=== PATIENT | female | born 1955 | race Caucasian/White ===

== ENCOUNTER → 2018-08-28 | Outpatient (CLI) | payer OTHER ==
--- NOTE | 2018-08-29 08:48 | Diagnostic Imaging Report ---
#[id number] - MGSCRBIL #BILATERAL DIGITAL SCREENING MAMMOGRAM WITH CAD: 08/28/2018 CLINICAL: Routine screening. Comparison is made to exams dated: 08/24/2017 mammogram and 08/01/2015 mammogram - [facility]. Current study contains 4 films. There are scattered fibroglandular elements in both breasts. Current study was also evaluated with a Computer Aided Detection (CAD) system. There is a benign calcification in both breasts. No significant masses, calcifications, or other findings are seen in either breast. There has been no significant interval change. IMPRESSION: BENIGN There is no mammographic evidence of malignancy. A 1 year screening mammogram is recommended. The patient will be notified by letter of the results. Obie yañez/lam:08/28/2018 10:48:18 Sheet Rock Taper Helper: Roslyn STANFORD(R)(M), [facility] letter sent: Compared to Prior B9 Mammogram BI-RADS: 2 Benign
== END ==
LOC: MAMMO 08:31
PROVIDERS: ATTEND Internal Medicine
DX: Z12.31 Encounter for screening mammogram for malignant neoplasm of breast (principal)
CPT/HCPCS: 77067

== ENCOUNTER 2021-07-04 01:55 | Emergency (ER) | payer MEDICARE ==
[~2021-07-04] VITALS: Ht 170.2 cm; Wt 81.6 kg
[2021-07-04] MEDS ORDERED: BACTRIM DS TAB1 EACH PO (02:22)
[2021-07-04] MEDS ORDERED: IBUPROFEN600 MG PO (02:22)
[2021-07-04] MEDS ORDERED: IBUPROFEN 400 MG TAB PO ONE (02:30)
[2021-07-04] MEDS ORDERED: TRIMETHOPRIM/SULFAMETHOXAZOLE 160-800 MG TAB PO ONE (02:30)
[2021-07-04] MEDS ORDERED: TETANUS/DIPHTHERIA TOX ADULT 0.5 ML SYR IM ONE (02:30)
[2021-07-04] MEDS ORDERED: DIPHTH/TETANUS/ACEL. PERTUSSIS 0.5 ML SYR IM ONE (02:30)
[2021-07-04] MEDS ORDERED: TETANUS/DIPHTHERIA TOX ADULT 0.5 ML SYR ONE (02:35)
== END 2021-07-04 03:17 | disposition home or self-care (01) ==
LOC: ER 02:17
DX: S61.432A Puncture wound without foreign body of left hand, initial encounter (principal); W45.0XXA Nail entering through skin, initial encounter; Y93.H3 Activity, building and construction; Y92.008 Other place in unspecified non-institutional (private) residence as the place of occurrence of the external cause
CPT/HCPCS: 90471; 90714; 99283

== ENCOUNTER 2022-02-04 11:00 | Outpatient (RCR) | payer MEDICARE ==
[~2022-02-04 11:00] MED LIST: BACTRIM DS TAB1 EACH PO; IBUPROFEN600 MG PO
== END 2022-02-05 ==
LOC: PT 11:00
PROVIDERS: ATTEND Specialist
DX: S46.911A Strain of unspecified muscle, fascia and tendon at shoulder and upper arm level, right arm, initial encounter (principal); S46.011A Strain of muscle(s) and tendon(s) of the rotator cuff of right shoulder, initial encounter

== ENCOUNTER 2022-03-04 14:00 | Outpatient (RCR) | payer MEDICARE | END 2022-03-08 | LOC: PT 14:00 | PROVIDERS: ATTEND Specialist | DX: S46.911A Strain of unspecified muscle, fascia and tendon at shoulder and upper arm level, right arm, initial encounter (principal) | CPT/HCPCS: 97139 ==